=== PATIENT | female | born 1995 | race Asian ===

== ENCOUNTER 2017-08-02 03:32 | Emergency (ER) | payer SELFPAY ==
[~2017-08-02] VITALS: Ht 154.9 cm; Wt 57.5 kg
[2017-08-02] MEDS ORDERED: IBUPROFEN 200 MG TABLET PO ONE (04:00)
[2017-08-02 04:01] LABS: PATH.CAST-FLAG NOT PRESENT; SPERM-FLAG NOT PRESENT; SRC-FLAG NOT PRESENT; XTAL-FLAG NOT PRESENT; YLC-FLAG NOT PRESENT
[2017-08-02] MEDS ORDERED: IBUPROFEN 200 MG TABLET ONE (04:02)
[2017-08-02 04:19] LABS: HEMATOCRIT 41.8 % (34.6-47.8); HEMOGLOBIN 14.2 g/dL (11.7-16.4); WHITE BLOOD COUNT 11.8 x10^3/uL (4.5-13.2)
[2017-08-02 04:30] LABS: BLOOD UREA NITROGEN 9 mg/dL (7-18)
[2017-08-02] MEDS ORDERED: CEFTRIAXONE PMX 1GM/50ML 50 ML IV ONE (04:30)
[2017-08-02] MEDS ORDERED: SODIUM CHLORIDE 0.9% 1,000ML IVBOLUS ONE (04:30)
[2017-08-02] MEDS ORDERED: CEFTRIAXONE PMX 1GM/50ML 50 ML ONE (04:32)
[2017-08-02 05:33] VITALS: BP 119/71
== END 2017-08-02 07:02 | disposition home or self-care (01) ==
LOC: ED 06:54
DX: N10 Acute pyelonephritis (principal)
CPT/HCPCS: 36415; 76770; 80048; 81001; 82040; 84703; 85025; 87077; 87086; 96365; 96366; 99285; J0696; J7030; 87186